=== PATIENT | male | born 1990 | race Caucasian/White ===

== ENCOUNTER 2018-12-13 21:52 | Inpatient (IN) | payer MEDICAID ==
[~2018-12-13] VITALS: Ht 177.8 cm; Wt 74.8 kg
[2018-12-13] MEDS ORDERED: QUET100T PO (22:13)
[2018-12-13] MEDS ORDERED: LITH300T PO (22:13)
[2018-12-13] MEDS ORDERED: GABA-533 PO (22:13)
[2018-12-13] MEDS ORDERED: QUET25TA PO (22:13)
[2018-12-13 23:02] VITALS: BP 142/80
[2018-12-13] MEDS ORDERED: INFLUENZA VIRUS VACCINE QVS 2019-20 (3YR+)/PF 60 MCG/0.5 ML SYRINGE IM ONE (23:45)
[2018-12-14] MEDS: ZOLPIDEM TARTRATE 10 MG TABLET PO PRN (00:25)
[2018-12-14] MEDS: LORazepam 2 MG TABLET PO PRN ×2 (00:25→18:35)
[2018-12-14 01:38] VITALS: BP 125/69
[2018-12-14] MEDS ORDERED: OMEPRAZOLE 20 MG CAPSULE PO PRN (07:00)
[2018-12-14] MEDS ORDERED: ONDANSETRON HCL 4 MG TABLET PO PRN (07:00)
[2018-12-14] MEDS ORDERED: ALBUTEROL SULFATE HFA 90 MCG/PUFF 8 GM INHALER IH PRN (07:00)
[2018-12-14] MEDS ORDERED: BENZOCAINE/MENTHOL LOZENGE MM PRN (07:00)
[2018-12-14] MEDS ORDERED: PETROLATUM,WHITE 28 GM JELLY TP PRN (07:00)
[2018-12-14] MEDS ORDERED: BACITRACIN 28.4 GM OINTMENT TP PRN (07:00)
[2018-12-14] MEDS ORDERED: IBUPROFEN 600 MG TABLET PO PRN (07:00)
[2018-12-14] MEDS ORDERED: MAGNESIUM HYDROXIDE SUSPENSION 30 ML UDCUP PO PRN (07:00)
[2018-12-14] MEDS ORDERED: LOPERAMIDE HCL 2 MG CAPSULE PO PRN (07:00)
[2018-12-14] MEDS ORDERED: ACETAMINOPHEN 325 MG TABLET PO PRN (07:00)
[2018-12-14] MEDS ORDERED: MAG HYDROX/AL HYDROX/SIMETH ES 30 ML SUSPENSION UDCUP PO PRN (07:00)
[2018-12-14] MEDS ORDERED: CloNIDine HCL 0.1 MG TABLET PO PRN (07:00)
[2018-12-14] MEDS ORDERED: DOCUSATE SODIUM 100 MG CAPSULE PO PRN (07:00)
[2018-12-14 08:36] VITALS: BP 129/74
[2018-12-14 08:36] LABS: BASOPHILS % (AUTO) 0.3 % (0.0-2.0); HEMATOCRIT 38.2 % (41-53); HEMOGLOBIN 13.1 g/dL (13.5-17.5); LYMPHOCYTES # (AUTO) 1.9 K/uL (1.0-4.8); LYMPHOCYTES % (AUTO) 21.7 % (22.0-44.0); MEAN CORPUSCULAR HEMOGLOBIN 30.8 pg (26.0-34.0); MEAN CORPUSCULAR HGB CONC 34.3 G/dL (31.0-37.0); MEAN CORPUSCULAR VOLUME 90 fL (80-100); MONOCYTES # (AUTO) 0.9 K/uL (0.1-1.0); MONOCYTES % (AUTO) 10.3 % (2.0-9.0); NEUTROPHILS # (AUTO) 5.7 K/uL (1.8-7.7); NEUTROPHILS % (AUTO) 65.7 % (40.0-70.0); PLATELET COUNT (AUTO) 328 K/uL (150-450); RED BLOOD CELL COUNT(AUTO) 4.25 MIL/uL (4.50-5.90); RED CELL DISTRIBUTION WIDTH 12.9 % (11.5-14.5)
[2018-12-14 08:45] LABS: HEMOGLOBIN A1C 4.7 % (4.5-6.2)
[2018-12-14 09:55] LABS: ALANINE AMINOTRANSFERASE 39 U/L (12-78); ALBUMIN 3.2 g/dL (3.4-5.0); ALKALINE PHOSPHATASE 89 U/L (46-116); ANION GAP 3 mmol/L (8-16); ASPARTATE AMINOTRANSFERASE 74 U/L (15-37); BILIRUBIN,TOTAL 0.5 mg/dL (0.1-1.0); CALCIUM, TOTAL 8.6 mg/dL (8.8-10.5); CARBON DIOXIDE 31 mmol/L (22-29); CHLORIDE 102 mmol/L (98-107); CHOL/HDL RATIO 3.9 (4.2-7.3); CHOLESTEROL 125 mg/dL (131-200); CREATININE 0.81 mg/dL (0.60-1.30); FREE T4 (FREE THYROXINE) 0.88 ng/dL (0.76-1.46); GLOMERULAR FILTR. RATE CALC > 60 mL/min (>60); GLUCOSE,RANDOM 81 mg/dL (70-110); HDL CHOLESTEROL 32 mg/dL (40-60); LDL CHOL (CALC.) 78 mg/dL (0-130); POTASSIUM 4.7 mmol/L (3.5-5.1); SODIUM SERUM 136 mmol/L (136-145); THYROID STIMULATING HORMONE 0.22 uIU/mL (0.36-3.74); TOTAL PROTEIN, SERUM 6.4 g/dL (6.4-8.2); TRIGLYCERIDES 74 mg/dL (15-150); UREA NITROGEN, BLOOD 9 mg/dL (7-18)
[2018-12-14 16:25] VITALS: BP 125/79
[2018-12-14] MEDS: HALOPERIDOL 5 MG TABLET PO PRN (18:35)
[2018-12-14] MEDS: QUEtiapine FUMARATE 200 MG TABLET PO SCH (20:52)
[2018-12-15] VITALS (9 sets, daily range): BP systolic 110–127; BP diastolic 58–84
[2018-12-15] MEDS: GABAPENTIN 400 MG CAPSULE PO SCH ×3 (08:52→16:33)
[2018-12-15] MEDS: LITHIUM CARBONATE 300 MG CAPSULE PO SCH ×2 (08:52→16:33)
[2018-12-15] MEDS: LORazepam 2 MG TABLET PO PRN (10:57)
[2018-12-15] MEDS ORDERED: CloNIDine HCL 0.1 MG TABLET PO PRN (12:15)
[2018-12-15] MEDS ORDERED: HydrOXYzine PAMOATE 50 MG CAPSULE PO PRN (12:15)
[2018-12-15] MEDS ORDERED: MAG HYDROX/AL HYDROX/SIMETH ES 30 ML SUSPENSION UDCUP PO PRN (12:15)
[2018-12-15] MEDS ORDERED: IBUPROFEN 600 MG TABLET PO PRN (12:15)
[2018-12-15] MEDS: CloNIDine HCL 0.1 MG TABLET PO SCH ×2 (16:34→22:02)
[2018-12-15] MEDS: QUEtiapine FUMARATE 200 MG TABLET PO SCH (20:50)
[2018-12-16] VITALS (8 sets, daily range): BP systolic 100–126; BP diastolic 61–74
[2018-12-16] MEDS: LORazepam 2 MG TABLET PO PRN ×3 (00:05→21:53)
[2018-12-16] MEDS: ZOLPIDEM TARTRATE 10 MG TABLET PO PRN (00:06)
[2018-12-16] MEDS: CloNIDine HCL 0.1 MG TABLET PO SCH ×4 (06:39→21:25)
[2018-12-16] MEDS: LITHIUM CARBONATE 300 MG CAPSULE PO SCH ×2 (08:34→17:24)
[2018-12-16] MEDS: GABAPENTIN 400 MG CAPSULE PO SCH ×3 (08:34→17:24)
[2018-12-16] MEDS: HALOPERIDOL 5 MG TABLET PO PRN (08:34)
[2018-12-16] MEDS: QUEtiapine FUMARATE 200 MG TABLET PO SCH (21:25)
[2018-12-17] MEDS: CloNIDine HCL 0.1 MG TABLET PO SCH ×4 (06:24→21:05)
[2018-12-17 06:43] VITALS: BP 117/75
[2018-12-17] MEDS ORDERED: QUET200T PO (08:38)
[2018-12-17] MEDS ORDERED: LITH300C3 PO (08:38)
[2018-12-17] MEDS: LITHIUM CARBONATE 300 MG CAPSULE PO SCH ×2 (08:47→16:43)
[2018-12-17] MEDS: GABAPENTIN 400 MG CAPSULE PO SCH ×3 (08:47→16:43)
[2018-12-17] MEDS ORDERED: CLON-570 PO (10:59)
[2018-12-17 12:12] VITALS: BP 101/66
[2018-12-17 16:09] VITALS: BP 113/64
[2018-12-17] MEDS: ZOLPIDEM TARTRATE 10 MG TABLET PO PRN (21:05)
[2018-12-17] MEDS: QUEtiapine FUMARATE 200 MG TABLET PO SCH (21:05)
[2018-12-18 05:42] VITALS: BP 107/74
[2018-12-18] MEDS: CloNIDine HCL 0.1 MG TABLET PO SCH ×4 (05:58→21:19)
[2018-12-18] MEDS: GABAPENTIN 400 MG CAPSULE PO SCH ×3 (09:07→16:20)
[2018-12-18] MEDS: LITHIUM CARBONATE 300 MG CAPSULE PO SCH ×2 (09:07→16:20)
[2018-12-18 11:49] VITALS: BP 110/72
[2018-12-18] MEDS: QUEtiapine FUMARATE 200 MG TABLET PO SCH ×2 (20:04→20:42)
[2018-12-19] MEDS: CloNIDine HCL 0.1 MG TABLET PO SCH ×2 (06:35→12:36)
[2018-12-19 08:07] LABS: BASOPHILS % (AUTO) 0.3 % (0.0-2.0); EOSINOPHILS % (AUTO) 1.3 % (1.0-6.0); HEMATOCRIT 41.1 % (41-53); HEMOGLOBIN 14.2 g/dL (13.5-17.5); LYMPHOCYTES # (AUTO) 2.7 K/uL (1.0-4.8); LYMPHOCYTES % (AUTO) 28.9 % (22.0-44.0); MEAN CORPUSCULAR HEMOGLOBIN 30.7 pg (26.0-34.0); MEAN CORPUSCULAR HGB CONC 34.6 G/dL (31.0-37.0); MEAN CORPUSCULAR VOLUME 89 fL (80-100); MONOCYTES # (AUTO) 0.6 K/uL (0.1-1.0); MONOCYTES % (AUTO) 6.3 % (2.0-9.0); NEUTROPHILS # (AUTO) 5.9 K/uL (1.8-7.7); NEUTROPHILS % (AUTO) 63.2 % (40.0-70.0); PLATELET COUNT (AUTO) 401 K/uL (150-450); RED BLOOD CELL COUNT(AUTO) 4.63 MIL/uL (4.50-5.90); RED CELL DISTRIBUTION WIDTH 12.7 % (11.5-14.5)
[2018-12-19] MEDS: GABAPENTIN 400 MG CAPSULE PO SCH ×2 (08:35→12:37)
[2018-12-19] MEDS: LITHIUM CARBONATE 300 MG CAPSULE PO SCH (08:36)
== END 2018-12-19 13:10 | disposition home or self-care (01) | DRG 750 ==
LOC: B3A 22:18 → EDBD 22:18
PROVIDERS: ADMIT Psychiatry & Neurology Psychiatry; ATTEND Psychiatry & Neurology Psychiatry
DX: F25.9 Schizoaffective disorder, unspecified (principal); Z59.0 Homelessness; F41.9 Anxiety disorder, unspecified; G47.00 Insomnia, unspecified; K59.00 Constipation, unspecified
CPT/HCPCS: 83036; 84439; 84443; Q0162

== ENCOUNTER 2023-06-26 21:37 | Inpatient (IN) | payer MEDICAID, OTHER ==
[~2023-06-26] VITALS: Ht 175.3 cm; Wt 80.8 kg
[~2023-06-26 21:37] MED LIST: CLON0.1T2 PO; GABA-1201 PO; LITH300C3 PO; QUET200T PO
[2023-06-26 23:13] LABS: BASOPHILS % (AUTO) 0.4 % (0.0-2.0); EOSINOPHILS % (AUTO) 2.3 % (1.0-6.0); HEMATOCRIT 39.2 % (41-53); HEMOGLOBIN 13.3 g/dL (13.5-17.5); LYMPHOCYTES # (AUTO) 1.5 K/uL (1.0-4.8); LYMPHOCYTES % (AUTO) 12.2 % (22.0-44.0); MEAN CORPUSCULAR HEMOGLOBIN 31.5 pg (26.0-34.0); MEAN CORPUSCULAR HGB CONC 33.9 G/dL (31.0-37.0); MEAN CORPUSCULAR VOLUME 93 fL (80-100); MONOCYTES # (AUTO) 1.7 K/uL (0.1-1.0); MONOCYTES % (AUTO) 14.1 % (2.0-9.0); NEUTROPHILS # (AUTO) 8.7 K/uL (1.8-7.7); PLATELET COUNT (AUTO) 260 K/uL (150-450); RED BLOOD CELL COUNT(AUTO) 4.23 MIL/uL (4.50-5.90); RED CELL DISTRIBUTION WIDTH 12.9 % (11.5-14.5); WHITE BLOOD COUNT (AUTO) 12.2 K/uL (4.5-11.0)
[2023-06-26 23:18] LABS: ANION GAP 8 mmol/L (8-16); CARBON DIOXIDE 29 mmol/L (22-29); CHLORIDE 103 mmol/L (98-107); CREATININE 1.27 mg/dL (0.60-1.30); GLOMERULAR FILTR. RATE CALC > 60 mL/min (>60); GLUCOSE,RANDOM 130 mg/dL (70-110); POTASSIUM 3.7 mmol/L (3.5-5.1); SODIUM SERUM 140 mmol/L (136-145); UREA NITROGEN, BLOOD 15 mg/dL (7-18)
[2023-06-26 23:25] LABS: ALANINE AMINOTRANSFERASE 25 U/L (12-78); ALBUMIN 4.2 g/dL (3.4-5.0); ALKALINE PHOSPHATASE 57 U/L (46-116); ASPARTATE AMINOTRANSFERASE 33 U/L (15-37); BILIRUBIN,TOTAL 0.7 mg/dL (0.1-1.0); TOTAL PROTEIN, SERUM 7.2 g/dL (6.4-8.2)
[2023-06-26 23:36] LABS: ALCOHOL, BLOOD (SERUM) < 3 mg/dL (0-10)
[2023-06-27] MEDS: DiphenhydrAMINE HCL 50 MG CAPSULE PO ONE (01:15)
[2023-06-27] MEDS: HALOPERIDOL 5 MG TABLET PO ONE (01:15)
[2023-06-27 01:48] LABS: COVID AG,FIA SOURCE NASAL SWAB
[2023-06-27 02:34] LABS: SARS-COV2 (COVID) ANTIGEN,FIA Negative (Negative)
[2023-06-27] MEDS: LORazepam 2 MG TABLET PO ONE (05:01)
[2023-06-27] MEDS ORDERED: ZOLPIDEM TARTRATE 10 MG TABLET PO PRN (05:45)
[2023-06-27] MEDS: LORazepam 2 MG TABLET PO PRN (16:39)
[2023-06-27] MEDS: HALOPERIDOL 5 MG TABLET PO PRN (16:39)
[2023-06-27 18:00] LABS: APPEARANCE,URINE HAZY (CLEAR); BILIRUBIN,URINE NEGATIVE (NEGATIVE); COLOR,URINE YELLOW (YELLOW); GLUCOSE, URINE (UA) NEGATIVE (NEGATIVE); LEUKOCYTE ESTERASE ,URINE NEGATIVE (NEGATIVE); NITRATE,URINE NEGATIVE (NEGATIVE); OCCULT BLOOD,URINE NEGATIVE (NEGATIVE); PROTEIN,URINE 30-70 mg/dL (NEGATIVE); SPECIFIC GRAVITIY, URINE 1.034 (1.003-1.030)
[2023-06-27 18:03] LABS: ALCOHOL, URINE DRUG SCREEN NEGATIVE (NEGATIVE); AMPHET/METH SCREEN,URINE POSITIVE (NEGATIVE); BARBITURATE SCREEN, URINE NEGATIVE (NEGATIVE); BENZODIAZEPINES SCREEN,URINE NEGATIVE (NEGATIVE); CANNABINOID SCREEN,URINE POSITIVE (NEGATIVE); COCAINE SCREEN,URINE NEGATIVE (NEGATIVE); METHADONE SCREEN, URINE NEGATIVE (NEGATIVE); OPIATE SCREEN,URINE POSITIVE (NEGATIVE); PHENCYCLIDINE SCREEN,URINE NEGATIVE (NEGATIVE)
[2023-06-27 18:15] VITALS: BP 125/69; PULSE 99; RESP 18; TEMP 98; O2SAT 98
[2023-06-27 20:25] VITALS: BP 125/84; PULSE 95; RESP 18; TEMP 98.2; O2SAT 99
[2023-06-28 08:53] VITALS: BP 142/80; PULSE 81; RESP 18; TEMP 98
[2023-06-28] MEDS: LITHIUM CARBONATE 300 MG CAPSULE PO SCH (10:45)
[2023-06-28] MEDS: QUEtiapine FUMARATE 200 MG TABLET PO SCH (10:46)
[2023-06-28 10:54] VITALS: BP 142/80; PULSE 89; RESP 18; TEMP 98; O2SAT 97
[2023-06-28] MEDS ORDERED: QUET100T34 PO (14:56)
[2023-06-28] MEDS ORDERED: GABA800T9 PO (14:56)
[2023-06-28] MEDS ORDERED: LITH600C5 PO (14:56)
[2023-06-28] MEDS ORDERED: IBUPROFEN 400 MG TABLET PO PRN (15:00)
[2023-06-28] MEDS ORDERED: ACETAMINOPHEN 325 MG TABLET PO PRN (15:00)
[2023-06-28] MEDS ORDERED: DOCUSATE SODIUM 100 MG CAPSULE PO PRN (15:00)
[2023-06-28] MEDS ORDERED: ONDANSETRON HCL 4 MG TABLET PO PRN (15:00)
[2023-06-28] MEDS ORDERED: GuaiFENesin/D-METHORPHAN [SUGAR-FREE] 200-20MG/10 ML SYRUP UDCUP PO PRN (15:00)
[2023-06-28] MEDS ORDERED: MAG HYDROX/ALUMINUM HYD/SIMETH ES 30 ML SUSPENSION UDCUP PO PRN (15:00)
[2023-06-28] MEDS ORDERED: MAGNESIUM HYDROXIDE SUSPENSION 30 ML UDCUP PO PRN (15:00)
[2023-06-28] MEDS ORDERED: CloNIDine HCL 0.1 MG TABLET PO PRN (15:00)
[2023-06-28] MEDS ORDERED: PETROLATUM,WHITE 28 GM JELLY TP PRN (15:00)
[2023-06-28] MEDS ORDERED: LOPERAMIDE HCL 2 MG CAPSULE PO PRN (15:00)
[2023-06-28] MEDS ORDERED: ALBUTEROL SULFATE HFA 90 MCG/PUFF 8 GM INHALER IH PRN (15:00)
[2023-06-28] MEDS ORDERED: NICOTINE 14 MG/24 HOUR PATCH TD PRN (15:00)
[2023-06-28 17:15] VITALS: BP 109/94; PULSE 109
[2023-06-28] MEDS: GABAPENTIN 400 MG CAPSULE PO SCH (17:26)
[2023-06-28] MEDS: CloNIDine HCL 0.1 MG TABLET PO SCH (17:26)
[2023-06-28 21:54] VITALS: BP 131/71; PULSE 100; RESP 18; TEMP 96.7; O2SAT 98
[2023-06-29 10:12] VITALS: BP 139/89; PULSE 80; RESP 19; TEMP 97.4; O2SAT 100
[2023-06-29] MEDS ORDERED: QUET200T PO (12:57)
== END 2023-06-29 14:10 | DRG 750 ==
LOC: EMS 21:42 → 3EI 06-27 17:13
PROVIDERS: ADMIT Psychiatry & Neurology Child & Adolescent Psychiatry; ATTEND Psychiatry & Neurology Child & Adolescent Psychiatry
DX: F25.1 Schizoaffective disorder, depressive type (principal); R45.851 Suicidal ideations; S00.83XA Contusion of other part of head, initial encounter; D64.9 Anemia, unspecified; D72.829 Elevated white blood cell count, unspecified; F11.10 Opioid abuse, uncomplicated; S60.222A Contusion of left hand, initial encounter; S60.221A Contusion of right hand, initial encounter; F12.10 Cannabis abuse, uncomplicated; I10 Essential (primary) hypertension; Z20.822 Contact with and (suspected) exposure to COVID-19; X58.XXXA Exposure to other specified factors, initial encounter; Y93.89 Activity, other specified; Y92.89 Other specified places as the place of occurrence of the external cause; Y99.8 Other external cause status; Z59.00 Homelessness unspecified; Z88.1 Allergy status to other antibiotic agents; Z88.2 Allergy status to sulfonamides; Z91.51 Personal history of suicidal behavior; Z86.79 Personal history of other diseases of the circulatory system
CPT/HCPCS: 70450; 70486; 80053; 80307; 81003; 85025; 93005; 99285; G0480

== ENCOUNTER 2024-04-02 16:07 | Emergency (ER) | payer MEDICAID, OTHER ==
[~2024-04-02] VITALS: Ht 177.8 cm; Wt 75.0 kg
[~2024-04-02 16:07] MED LIST changes: -GABA-1201 PO; +GABA-1554 PO
[2024-04-02 16:19] VITALS: TEMP 98.2
[2024-04-02 19:15] VITALS: BP 128/84; PULSE 71; RESP 17; O2SAT 99
[2024-04-02] MEDS ORDERED: QUET100T34 PO (19:33)
[2024-04-02] MEDS ORDERED: LITH600C5 PO (19:33)
[2024-04-02] MEDS ORDERED: BUPR1FIL21 SL (19:33)
[2024-04-02] MEDS: LIDOCAINE 1% 10 ML VIAL ID ONE (19:44)
== END 2024-04-02 20:46 | disposition home or self-care (01) ==
LOC: EMS 16:09
DX: S61.012A Laceration without foreign body of left thumb without damage to nail, initial encounter (principal); I10 Essential (primary) hypertension; F12.90 Cannabis use, unspecified, uncomplicated; F15.90 Other stimulant use, unspecified, uncomplicated; Z79.899 Other long term (current) drug therapy; Z88.1 Allergy status to other antibiotic agents; Z88.2 Allergy status to sulfonamides; W26.0XXA Contact with knife, initial encounter; Y93.89 Activity, other specified; Y92.89 Other specified places as the place of occurrence of the external cause; Y99.0 Civilian activity done for income or pay
CPT/HCPCS: 99282; 12001; J3490